=== PATIENT | male | born 1960 | race Caucasian/White ===

== ENCOUNTER 2019-03-29 16:30 | Inpatient (IN) | payer MEDICAID, OTHER ==
[~2019-03-29] VITALS: Ht 182.9 cm; Wt 70.1 kg
[2019-03-29 17:10] LABS: RAPID INFLUENZA A Negative (Negative); RAPID INFLUENZA B Negative (Negative)
[2019-03-29 17:16] LABS: MEAN CORPUSCULAR HEMOGLOBIN 31.1 pg (27.5-34.5); MEAN CORPUSCULAR HGB CONC 33.2 g/dL (33.2-36.2); MEAN CORPUSCULAR VOLUME 93.7 fL (81-97); MEAN PLATELET VOLUME 6.7 fL (7.4-10.4); PLATELET COUNT 197 x10^3/uL (130-400); RED BLOOD COUNT 5.01 x10^6/uL (4.38-5.82); RED CELL DISTRIBUTION WIDTH 13.1 % (9.4-14.8)
[2019-03-29 17:23] LABS: ALANINE AMINOTRANSFERASE 18 U/L (12-78); ALBUMIN 3.4 g/dL (3.4-5.0); ANION GAP 6 mmol/L (5-15); CALCIUM 9.1 mg/dL (8.5-10.1); CHLORIDE 108 mmol/L (98-107); CREATININE 1.21 mg/dL (0.7-1.3)
[2019-03-29 17:25] LABS: ALKALINE PHOSPHATASE 115 U/L (45-117); BILIRUBIN,TOTAL 0.6 mg/dL (0.2-1.0); TOTAL PROTEIN 7.8 g/dL (6.4-8.2)
[2019-03-29 17:42] LABS: BASOPHILS # (AUTO) 0.02 x10^3/uL (0-0.1); BASOPHILS % (AUTO) 1 % (0-1); EOSINOPHILS % (AUTO) 7 % (1-7); LYMPHOCYTES # (AUTO) 0.64 x10^3/uL (1-3.4); LYMPHOCYTES % (AUTO) 22 % (22-44); MONOCYTES # (AUTO) 0.32 x10^3/uL (0.2-0.8); MONOCYTES % (AUTO) 11 % (2-9); NEUTROPHILS # (AUTO) 1.73 x10^3/uL (1.8-6.8); NEUTROPHILS % (AUTO) 59 % (42-75)
[2019-03-29 17:43] LABS: MD SCAN
--- NOTE | 2019-03-29 18:28 | NUR ---
PT AMBULATORY WITH STEADY GAIT FROM LOBBY TO ROOM. CHANGING INTO GOWN NOW.
--- NOTE | 2019-03-29 18:34 | NUR ---
PT HERE FOR SOB THAT HAS BEEN PRESENT FOR ONE MONTH. WAS SEEN IN [facility] TWO DAYS AGO, PRESCRIBED ABX, HAS BEEN TAKING THEM, AND IS NOT FEELING BETTER. CURRENTLY RESTING ON GURINA. NADN. VSS. PROVIDED WITH WARM BLANKET.
--- NOTE | 2019-03-29 19:38 | NUR ---
PT RESTING CALMLY, ATTEMPTED TO START IV SITE, UNSUCCESSFUL. OTHER RN TO START IV SITE. MONITORS IN PLACE, CALL LIGHT WITHIN REACH, AWAITING CT
--- NOTE | 2019-03-29 19:54 | NUR ---
PT TO CT
[2019-03-29] MEDS ORDERED: OMNIPAQUE 350 MG/ML, 75ML BOTTLE ONE (20:10)
--- NOTE | 2019-03-29 20:13 | NUR ---
PT RESTING ON GURNEY, DENIES NEEDS, MONITORS REAPPLIED, VSS, CALL LIGHT WITHIN REACH. AWAITING CT RESULT
--- NOTE | 2019-03-29 20:14 | NUR ---
LAB CALLED FOR 2ND SET BLOOD C/X
[2019-03-29] MEDS ORDERED: SULFAMETH./TRIMETHOPRIM 20 ML in DEXTROSE 5% 500 ML IV ONE (21:00)
[2019-03-29] MEDS ORDERED: AZITHROMYCIN 500 MG TABLET PO ONE (21:00)
[2019-03-29] MEDS ORDERED: CEFTRIAXONE PMX 1GM/50ML 50 ML IV ONE (21:00)
[2019-03-29] MEDS ORDERED: AZITHROMYCIN 250 MG TABLET ONE (21:14)
[2019-03-29] MEDS ORDERED: CEFTRIAXONE PMX 1GM/50ML 50 ML ONE (21:14)
--- NOTE | 2019-03-29 21:23 | NUR ---
pt resting calmly, medicated per mar, monitors in place. awaiting admit
[2019-03-29] MEDS ORDERED: AZITHROMYCIN 500 MG in SODIUM CHLORIDE 0.9% 250 ML IV SCH (21:30)
[2019-03-29] MEDS ORDERED: ONDANSETRON ODT 4 MG PO PRN (22:00)
[2019-03-29] MEDS ORDERED: GUAIFENESIN/DM 200-20MG, 10ML UDC PO PRN (22:00)
[2019-03-29] MEDS: SODIUM CHLORIDE FLUSH 10ML SYR IVF SCH (22:00)
[2019-03-29] MEDS ORDERED: BISACODYL 10 MG SUPP PR PRN (22:00)
[2019-03-29] MEDS ORDERED: POLYETHYLENE GLYCOL 17 GM PACKET PO PRN (22:00)
[2019-03-29] MEDS: NICOTINE 14MG/24 HR PATCH.TD24 TD SCH (22:00)
[2019-03-29 22:24] VITALS: BP 137/95
[2019-03-29] MEDS: NYSTATIN 500,000 UNITS/5 ML UDC PO SCH (22:39)
[2019-03-29] MEDS ORDERED: ALBUTEROL SULFATE 2.5 MG/3 ML NPPB PRN (23:30)
[2019-03-30 02:38] VITALS: BP 125/77
[2019-03-30] MEDS: NYSTATIN 500,000 UNITS/5 ML UDC PO SCH ×4 (05:29→20:49)
[2019-03-30 05:57] LABS: MEAN CORPUSCULAR HEMOGLOBIN 30.7 pg (27.5-34.5); MEAN CORPUSCULAR HGB CONC 33.5 g/dL (33.2-36.2); MEAN CORPUSCULAR VOLUME 91.7 fL (81-97); MEAN PLATELET VOLUME 6.7 fL (7.4-10.4); PLATELET COUNT 194 x10^3/uL (130-400); RED BLOOD COUNT 4.78 x10^6/uL (4.38-5.82); RED CELL DISTRIBUTION WIDTH 12.9 % (9.4-14.8)
[2019-03-30 06:06] LABS: ANION GAP 7 mmol/L (5-15); CALCIUM 8.8 mg/dL (8.5-10.1); CHLORIDE 109 mmol/L (98-107)
[2019-03-30 06:09] LABS: ALANINE AMINOTRANSFERASE 17 U/L (12-78); ALKALINE PHOSPHATASE 115 U/L (45-117); BILIRUBIN,TOTAL 0.4 mg/dL (0.2-1.0); CREATININE 1.14 mg/dL (0.7-1.3)
[2019-03-30 06:26] LABS: BASOPHILS # (AUTO) 0.02 x10^3/uL (0-0.1); BASOPHILS % (AUTO) 1 % (0-1); EOSINOPHILS # (AUTO) 0.25 x10^3/uL (0-0.4); EOSINOPHILS % (AUTO) 9 % (1-7); LYMPHOCYTES # (AUTO) 0.57 x10^3/uL (1-3.4); LYMPHOCYTES % (AUTO) 21 % (22-44); MD SCAN; MONOCYTES # (AUTO) 0.31 x10^3/uL (0.2-0.8); MONOCYTES % (AUTO) 11 % (2-9); NEUTROPHILS # (AUTO) 1.61 x10^3/uL (1.8-6.8); NEUTROPHILS % (AUTO) 58 % (42-75)
[2019-03-30 08:30] VITALS: BP 134/86
[2019-03-30] MEDS: SENNA/DOCUSATE TABLET PO SCH (09:00)
[2019-03-30] MEDS: SODIUM CHLORIDE FLUSH 10ML SYR IVF SCH ×2 (09:43→20:34)
[2019-03-30] MEDS: SULFAMETH./TRIMETHOPRIM 20 ML in DEXTROSE 5% 500 ML IV SCH ×3 (09:44→21:41)
[2019-03-30] MEDS: ACETAMINOPHEN 325 MG TABLET PO PRN ×2 (09:48→20:34)
[2019-03-30 19:50] VITALS: BP 124/73
[2019-03-30] MEDS: NICOTINE 14MG/24 HR PATCH.TD24 TD SCH (20:34)
[2019-03-30] MEDS: CEFTRIAXONE PMX 1GM/50ML 50 ML IV SCH (20:49)
[2019-03-30] MEDS: AZITHROMYCIN 500 MG in SODIUM CHLORIDE 0.9% 250 ML IV SCH (23:21)
[2019-03-31 02:24] VITALS: BP 128/86
[2019-03-31] MEDS: NYSTATIN 500,000 UNITS/5 ML UDC PO SCH ×4 (06:13→21:40)
[2019-03-31 08:31] VITALS: BP 127/87
[2019-03-31] MEDS: SENNA/DOCUSATE TABLET PO SCH (08:38)
[2019-03-31] MEDS: SODIUM CHLORIDE FLUSH 10ML SYR IVF SCH ×2 (08:38→21:41)
[2019-03-31] MEDS: SULFAMETH./TRIMETHOPRIM 20 ML in DEXTROSE 5% 500 ML IV SCH ×2 (09:48→18:24)
[2019-03-31] MEDS: ACETAMINOPHEN 325 MG TABLET PO PRN (11:01)
[2019-03-31 14:20] VITALS: BP 131/74
[2019-03-31 19:26] VITALS: BP 136/71
[2019-03-31] MEDS: CEFTRIAXONE PMX 1GM/50ML 50 ML IV SCH (21:39)
[2019-03-31] MEDS: SULFAMETH./TRIMETHOPRIM DS 800MG/160MG TABLET PO SCH (21:40)
[2019-03-31] MEDS: NICOTINE 14MG/24 HR PATCH.TD24 TD SCH (21:41)
[2019-03-31] MEDS: AZITHROMYCIN 500 MG in SODIUM CHLORIDE 0.9% 250 ML IV SCH (23:01)
[2019-04-01 02:35] VITALS: BP 136/76
[2019-04-01] MEDS: NYSTATIN 500,000 UNITS/5 ML UDC PO SCH ×2 (06:06→10:48)
[2019-04-01 06:52] LABS: MEAN CORPUSCULAR HEMOGLOBIN 30.5 pg (27.5-34.5); MEAN CORPUSCULAR HGB CONC 32.9 g/dL (33.2-36.2); MEAN CORPUSCULAR VOLUME 92.7 fL (81-97); MEAN PLATELET VOLUME 6.6 fL (7.4-10.4); PLATELET COUNT 205 x10^3/uL (130-400); RED BLOOD COUNT 4.87 x10^6/uL (4.38-5.82); RED CELL DISTRIBUTION WIDTH 13.1 % (9.4-14.8)
[2019-04-01 06:57] LABS: ANION GAP 9 mmol/L (5-15); CALCIUM 8.6 mg/dL (8.5-10.1); CHLORIDE 109 mmol/L (98-107)
[2019-04-01 06:58] LABS: CREATININE 1.41 mg/dL (0.7-1.3)
[2019-04-01 08:09] LABS: BASOPHILS # (AUTO) 0.02 x10^3/uL (0-0.1); BASOPHILS % (AUTO) 1 % (0-1); EOSINOPHILS # (AUTO) 0.21 x10^3/uL (0-0.4); EOSINOPHILS % (AUTO) 9 % (1-7); LYMPHOCYTES # (AUTO) 0.67 x10^3/uL (1-3.4); LYMPHOCYTES % (AUTO) 28 % (22-44); MD SCAN; MONOCYTES # (AUTO) 0.26 x10^3/uL (0.2-0.8); MONOCYTES % (AUTO) 11 % (2-9); NEUTROPHILS # (AUTO) 1.28 x10^3/uL (1.8-6.8); NEUTROPHILS % (AUTO) 52 % (42-75)
[2019-04-01 08:15] VITALS: BP 127/82
[2019-04-01] MEDS: SENNA/DOCUSATE TABLET PO SCH (09:00)
[2019-04-01] MEDS ORDERED: CEFD300C37 PO (09:12)
[2019-04-01] MEDS ORDERED: LACT1CAP35 PO (09:12)
[2019-04-01] MEDS ORDERED: AZIT500T10 PO (09:12)
[2019-04-01] MEDS ORDERED: SULF1TAB24 PO (09:12)
[2019-04-01] MEDS: SULFAMETH./TRIMETHOPRIM DS 800MG/160MG TABLET PO SCH (09:38)
[2019-04-01] MEDS: SODIUM CHLORIDE FLUSH 10ML SYR IVF SCH (09:39)
[2019-04-01] MEDS ORDERED: NYST1000 PO (09:50)
== END 2019-04-01 12:13 | disposition left against medical advice (07) | DRG 892 ==
LOC: ED 20:34 → EDIP 21:09 → 3N 22:08
PROVIDERS: ADMIT Internal Medicine; ATTEND Hospitalist
DX: B20 Human immunodeficiency virus [HIV] disease (principal); B59 Pneumocystosis; B37.0 Candidal stomatitis; B18.1 Chronic viral hepatitis B without delta-agent; B18.2 Chronic viral hepatitis C; F11.10 Opioid abuse, uncomplicated; F12.90 Cannabis use, unspecified, uncomplicated; J98.11 Atelectasis; M81.0 Age-related osteoporosis without current pathological fracture; Z72.0 Tobacco use; Z91.14 Patient's other noncompliance with medication regimen
CPT/HCPCS: 36415; 36600; 71045; 71260; 80048; 80053; 82803; 83615; 85025; 86361; 86738; 87040; 87070; 87205; 87281; 87400; 87517; 87536; 88108; 88312; 93005; 96374; 99285; G0378; J0456; J0696; Q9967; J7050; J7060